=== PATIENT | male | born 1970 | race Two or more races ===

== ENCOUNTER 2019-02-27 20:12 | Emergency (ER) | payer BC ==
[~2019-02-27] VITALS: Ht 182.9 cm; Wt 102.1 kg
[2019-02-27 22:13] LABS: Basophils # (auto) 0.1 uL; Basophils % (auto) 0.9 % (0.0-2.0); Eosinophils # (auto) 0.2 uL; Hematocrit 47.9 % (41.0-53.0); Hemoglobin 17.1 g/dL (13.5-17.5); Lymphocytes # (auto) 1.6 uL; Lymphocytes % (auto) 16.1 % (10.0-50.0); Mean Corpuscular Hemoglobin 31.6 pg (28.0-32.0); Mean Corpuscular Hgb Conc. 35.7 g/dL (32.0-36.0); Mean Corpuscular Volume 88.4 fL (80.0-100.0); Monocytes # (auto) 0.7 uL; Monocytes % (auto) 6.8 % (0.0-12.0); Neutrophils # (auto) 7.3 uL; Neutrophils % (auto) 74.2 % (37.0-80.0); Nucleated Red Blood Cells % 0.2 %; Platelet Count (auto) 236 10^3/uL (140-450); Red Blood Cells 5.42 10^6/uL (4.5-5.90); Red Cell Distribution Width 13.5 % (11.8-14.3); White Blood Cell 9.9 10^3/uL (4.4-10.8)
[2019-02-27 22:53] LABS: Albumin 4.1 g/dL (3.4-5.0); Anion Gap 7 (5-15); Calcium 8.7 mg/dL (8.5-10.1); Carbon Dioxide 26 mmol/L (21-32); Chloride 104 mmol/L (98-107); Glucose 264 mg/dL (74-106); Potassium 4.7 mmol/L (3.5-5.1); Sodium 137 mmol/L (136-145)
[2019-02-27 22:59] LABS: Alkaline Phosphatase 164 U/L (45-117); Bilirubin, Total 0.7 mg/dL (0.2-1.0); GFR African American 96 mL/min; GFR Non-African American 79 mL/min
[2019-02-27 23:12] LABS: Alanine Aminotransferase 74 U/L (16-61); Aspartate Aminotransferase 52 U/L (15-37); BUN/Creatinine Ratio 13.3; Blood Urea Nitrogen 14 mg/dL (7-18); Total Protein 8.3 g/dL (6.4-8.2)
[2019-02-27 23:37] LABS: INR < 0.93 (0.9-1.15)
[2019-02-27 23:38] LABS: Partial Thromboplastin Time 22.6 sec (23.64-32.05)
[2019-02-28] MEDS ORDERED: HYDROcodone-ACET 7.5/325MG TAB PO ONE (00:30)
[2019-02-28] MEDS ORDERED: ONDANSETRON HCL 4 MG/2 ML VIAL IV ONE (02:00)
[2019-02-28 03:41] VITALS: BP 112/64
== END 2019-02-28 03:48 | disposition home or self-care (01) ==
LOC: ER 20:15
DX: R07.89 Other chest pain (principal); R51 Headache; E11.65 Type 2 diabetes mellitus with hyperglycemia; F41.9 Anxiety disorder, unspecified; E78.5 Hyperlipidemia, unspecified; I10 Essential (primary) hypertension
CPT/HCPCS: 36415; 70450; 71045; 72125; 80053; 84443; 84484; 85025; 85379; 85610; 85730; 93005; 96374; 99284; J2405